=== PATIENT | male | born 1995 | race Caucasian/White ===

== ENCOUNTER 2018-05-25 21:17 | Emergency (ER) | payer OTHER ==
[~2018-05-25] VITALS: Ht 175.3 cm; Wt 88.5 kg
[~2018-05-25 21:17] MED LIST: NORCO1 TA2 PO
[2018-05-25 21:31] VITALS: BP 145/87; Ht 175.3 cm; Wt 88.5 kg
== END 2018-05-25 23:20 | disposition home or self-care (01) ==
LOC: ED 21:17
DX: L02.416 Cutaneous abscess of left lower limb (principal); J45.909 Unspecified asthma, uncomplicated
CPT/HCPCS: J0696

== ENCOUNTER 2018-05-28 09:04 | Emergency (ER) | payer OTHER ==
[~2018-05-28] VITALS: Ht 175.3 cm; Wt 88.5 kg
[2018-05-28 09:44] VITALS: Ht 175.3 cm; Wt 88.5 kg
[2018-05-28 11:52] VITALS: BP 132/68
== END 2018-05-28 11:52 | disposition home or self-care (01) ==
LOC: ED 09:04
DX: L02.416 Cutaneous abscess of left lower limb (principal); J45.909 Unspecified asthma, uncomplicated